=== PATIENT | female | born 1980 | race American Indian/Alaskan Native ===

== ENCOUNTER 2017-01-18 07:30 | Emergency (ER) | payer OTHER ==
[2017-01-18 07:40] VITALS: BP 124/82
== END 2017-01-18 19:00 | disposition left against medical advice (07) ==
LOC: ED 07:30
DX: L02.414 Cutaneous abscess of left upper limb (principal); Z53.21 Procedure and treatment not carried out due to patient leaving prior to being seen by health care provider
CPT/HCPCS: 82962